=== PATIENT | female | born 2000 | race Caucasian/White ===

== ENCOUNTER 2022-07-03 18:58 | Emergency (ER) | payer BC, MEDICAID ==
[~2022-07-03] VITALS: Ht 167.6 cm; Wt 109.1 kg
[2022-07-03 19:00] VITALS: BP 142/76
[2022-07-03] MEDS ORDERED: GABA-1181 PO (20:08)
[2022-07-03] MEDS ORDERED: CYCL-448 PO (20:08)
[2022-07-03] MEDS ORDERED: NAPR-1025 PO (20:08)
[2022-07-03] MEDS ORDERED: KETOROLAC TROMETHAMINE 60 MG/2 ML VIAL IM ONE (20:15)
[2022-07-03] MEDS ORDERED: METHOCARBAMOL 500 MG TABLET PO ONE (20:15)
== END 2022-07-03 20:34 | disposition home or self-care (01) ==
LOC: EMS 19:03
DX: S39.012A Strain of muscle, fascia and tendon of lower back, initial encounter (principal); F12.90 Cannabis use, unspecified, uncomplicated; X58.XXXA Exposure to other specified factors, initial encounter; Y93.89 Activity, other specified; Y92.89 Other specified places as the place of occurrence of the external cause; Y99.8 Other external cause status; J45.909 Unspecified asthma, uncomplicated
CPT/HCPCS: 99283; 96372; J1885

== ENCOUNTER 2022-07-09 15:31 | Emergency (ER) | payer BC, MEDICAID ==
[~2022-07-09] VITALS: Ht 165.1 cm; Wt 125.0 kg
[~2022-07-09 15:31] MED LIST: CYCL-448 PO; GABA-1181 PO; NAPR-1025 PO
[2022-07-09 15:47] VITALS: BP 125/71
[2022-07-09] MEDS ORDERED: ALBU8HFA IH (15:47)
== END 2022-07-09 15:59 | disposition home or self-care (01) ==
LOC: EMS 15:31
DX: Z00.00 Encounter for general adult medical examination without abnormal findings (principal); F10.20 Alcohol dependence, uncomplicated; F12.90 Cannabis use, unspecified, uncomplicated; J45.909 Unspecified asthma, uncomplicated
CPT/HCPCS: 99281; Z7502

== ENCOUNTER 2022-09-12 13:03 | Emergency (ER) | payer BC, MEDICAID ==
[~2022-09-12] VITALS: Ht 165.1 cm; Wt 127.3 kg
[~2022-09-12 13:03] MED LIST changes: +ALBU8HFA IH; -CYCL-448 PO; -GABA-1181 PO; -NAPR-1025 PO
[2022-09-12] MEDS ORDERED: ACETAMINOPHEN 325 MG TABLET PO ONE (14:45)
[2022-09-12] MEDS ORDERED: ONDANSETRON HCL 4 MG/2 ML VIAL IVP ONE (14:45)
[2022-09-12] MEDS ORDERED: SODIUM CHLORIDE 0.9% 1,000 ML IV ONE (14:45)
[2022-09-12 15:00] LABS: COVID AG,FIA SOURCE NASOPHARYNGEAL
[2022-09-12 15:02] LABS: BASOPHILS % (AUTO) 0.5 % (0.0-2.0); EOSINOPHILS % (AUTO) 0.6 % (1.0-6.0); HEMATOCRIT 47.1 % (36-46); LYMPHOCYTES # (AUTO) 0.7 K/uL (1.0-4.8); MEAN CORPUSCULAR HEMOGLOBIN 28.8 pg (26.0-34.0); MEAN CORPUSCULAR VOLUME 85 fL (80-100); MONOCYTES # (AUTO) 0.6 K/uL (0.1-1.0); MONOCYTES % (AUTO) 11.5 % (2.0-9.0); NEUTROPHILS # (AUTO) 3.5 K/uL (1.8-7.7); NEUTROPHILS % (AUTO) 72.4 % (40.0-70.0); PLATELET COUNT (AUTO) 296 K/uL (150-450); RED BLOOD CELL COUNT(AUTO) 5.55 MIL/uL (4.00-5.20); RED CELL DISTRIBUTION WIDTH 13.2 % (11.5-14.5)
[2022-09-12 15:15] VITALS: BP 103/75
[2022-09-12 15:19] LABS: ANION GAP 8 mmol/L (8-16); CALCIUM, TOTAL 9.1 mg/dL (8.8-10.5); CARBON DIOXIDE 28 mmol/L (22-29); CHLORIDE 99 mmol/L (98-107); CREATININE 0.98 mg/dL (0.60-1.30); GLUCOSE,RANDOM 98 mg/dL (70-110); POTASSIUM 3.4 mmol/L (3.5-5.1); SODIUM SERUM 135 mmol/L (136-145); UREA NITROGEN, BLOOD 7 mg/dL (7-18)
[2022-09-12 15:20] LABS: GLOMERULAR FILTR. RATE CALC > 60 mL/min (>60)
[2022-09-12 15:24] LABS: ALANINE AMINOTRANSFERASE 54 U/L (12-78); ALBUMIN 4.1 g/dL (3.4-5.0); ALKALINE PHOSPHATASE 68 U/L (46-116); ASPARTATE AMINOTRANSFERASE 36 U/L (15-37); BILIRUBIN,TOTAL 0.5 mg/dL (0.1-1.0); LIPASE 80 U/L (73-393); TOTAL PROTEIN, SERUM 8.5 g/dL (6.4-8.2)
[2022-09-12 15:33] LABS: INFLUENZA TYPE B NEGATIVE FOR TYPE B (NEGATIVE)
[2022-09-12 15:38] LABS: INFLUENZA TYPE A POSITIVE FOR TYPE A (NEGATIVE)
[2022-09-12] MEDS ORDERED: ONDA-104 PO (15:53)
[2022-09-12] MEDS ORDERED: ALBUTEROL SULFATE HFA 90 MCG/PUFF 8 GM INHALER IH ONE (16:00)
[2022-09-12] MEDS ORDERED: ALBU8HFA IH (16:00)
== END 2022-09-12 17:14 | disposition home or self-care (01) ==
LOC: EMS 13:05
DX: J10.1 Influenza due to other identified influenza virus with other respiratory manifestations (principal); J45.909 Unspecified asthma, uncomplicated; F12.90 Cannabis use, unspecified, uncomplicated; Z20.822 Contact with and (suspected) exposure to COVID-19
CPT/HCPCS: 99284; 96374; 71045; 96361; 87426; 80053; 83690; 84702; 85025; 87804; 36415; 94640; J2405; J7030; J3535

== ENCOUNTER 2024-03-12 18:47 | Emergency (ER) | payer BC, MEDICAID ==
[~2024-03-12] VITALS: Ht 165.1 cm; Wt 113.0 kg
[~2024-03-12 18:47] MED LIST changes: +ALBU18HF12 IH; -ALBU8HFA IH; +ONDA-104 PO
[2024-03-12 18:57] VITALS: TEMP 98
[2024-03-12 21:15] VITALS: BP 118/66; PULSE 82; RESP 20
[2024-03-12 21:27] LABS: BASOPHILS % (AUTO) 0.6 % (0.0-2.0); EOSINOPHILS % (AUTO) 0.7 % (1.0-6.0); HEMATOCRIT 43.4 % (36-46); HEMOGLOBIN 14.4 g/dL (12.0-16.0); LYMPHOCYTES # (AUTO) 2.2 K/uL (1.0-4.8); LYMPHOCYTES % (AUTO) 18.3 % (22.0-44.0); MEAN CORPUSCULAR HEMOGLOBIN 28.9 pg (26.0-34.0); MEAN CORPUSCULAR HGB CONC 33.3 G/dL (31.0-37.0); MEAN CORPUSCULAR VOLUME 87 fL (80-100); MONOCYTES # (AUTO) 0.4 K/uL (0.1-1.0); MONOCYTES % (AUTO) 3.5 % (2.0-9.0); NEUTROPHILS # (AUTO) 9.3 K/uL (1.8-7.7); NEUTROPHILS % (AUTO) 76.9 % (40.0-70.0); PLATELET COUNT (AUTO) 380 K/uL (150-450); RED BLOOD CELL COUNT(AUTO) 4.99 MIL/uL (4.00-5.20); RED CELL DISTRIBUTION WIDTH 13.4 % (11.5-14.5); WHITE BLOOD COUNT (AUTO) 12.1 K/uL (4.5-11.0)
[2024-03-12 21:42] LABS: ANION GAP 8 mmol/L (8-16); CALCIUM, TOTAL 9.1 mg/dL (8.8-10.5); CARBON DIOXIDE 29 mmol/L (22-29); CHLORIDE 102 mmol/L (98-107); CREATININE 0.82 mg/dL (0.60-1.30); GLOMERULAR FILTR. RATE CALC > 60 mL/min (>60); GLUCOSE,RANDOM 122 mg/dL (70-110); POTASSIUM 3.7 mmol/L (3.5-5.1); SODIUM SERUM 139 mmol/L (136-145); UREA NITROGEN, BLOOD 10 mg/dL (7-18)
[2024-03-12 21:45] LABS: % IRON SATURATION 20.8 % (22-44); IRON, SERUM 74 mcg/dL (50-175); TOTAL IRON BINDING CAPACITY 355 mcg/dL (250-450)
[2024-03-12 21:47] LABS: ALANINE AMINOTRANSFERASE 33 U/L (12-78); ALBUMIN 4.1 g/dL (3.4-5.0); ALKALINE PHOSPHATASE 72 U/L (46-116); ASPARTATE AMINOTRANSFERASE 22 U/L (15-37); BILIRUBIN,TOTAL 0.6 mg/dL (0.1-1.0); TOTAL PROTEIN, SERUM 8.1 g/dL (6.4-8.2)
== END 2024-03-12 22:49 | disposition home or self-care (01) ==
LOC: EMS 18:52
DX: S00.03XA Contusion of scalp, initial encounter (principal); J45.909 Unspecified asthma, uncomplicated; W19.XXXA Unspecified fall, initial encounter; Y93.89 Activity, other specified; Y92.89 Other specified places as the place of occurrence of the external cause; Y99.8 Other external cause status
CPT/HCPCS: 70450; 80053; 83540; 83550; 84703; 85025; 93005; 99284